=== PATIENT | male | born 1965 | race American Indian/Alaskan Native ===

== ENCOUNTER 2019-05-11 05:00 | Emergency (ER) | payer MEDICARE ==
--- NOTE | 2019-05-11 06:09 | XRay Report ---
PROCEDURE: XR HIP 2-3V RT TECHNIQUE: An AP view the pelvis was obtained along with a frog leg view of the right hip joint for total 2 views. HISTORY: Right hip pain COMPARISONS: None FINDINGS: The right hip joint space is well-maintained. The bony pelvic ring appears normal. The SI joints and left hip joint do not show any acute changes. The soft tissues are unremarkable. IMPRESSION: No significant findings.. This document is electronically signed by Low Conte MD., May 11 2019 06:07:16 AM ET
[2019-05-11] MEDS ORDERED: NACL 0.9% 0 ML IR ONE (07:37)
[2019-05-11] MEDS ORDERED: FLEXERIL PO ONE (07:40)
[2019-05-11] MEDS ORDERED: IBUPROFEN PO ONE (07:40)
[2019-05-11] MEDS ORDERED: NACL 0.9% IR ONE (07:40)
[2019-05-11] MEDS ORDERED: DELTASONE PO ONE (07:40)
--- NOTE | 2019-05-11 07:55 | Emergency Department Report ---
ED Back Pain/Injury HPI - General Chief Complaint: Fall Stated Complaint: RT SIDE BACK AND HIP PAIN Time Seen by Provider: 05/11/19 07:22 Source: patient Limitations: No Limitations - History of Present Illness Initial Comments: Patient is a 53-year-old male who comes to the ER today with right hip pain upon awakening this morning. He states that when he attempted to get out of bed and hurt him and he had a get back in the bed. It took him 3 times to get out. He states that he fell on Wednesday at work following on his right hip. He is ambulatory. He is neurovascularly intact on assessment. Patient has not taken anything to make the pain better or worse at home. The pain is achy in nature. MD Complaint: back pain -: Sudden Similar Symptoms Previously: No Place: work Quality: aching Consistency: intermittent Improves With: immobilization Context: while lifting Associated Symptoms: denies other symptoms - Related Data Previous Rx's Medication Instructions Recorded Last Taken Type Cyclobenzaprine [Flexeril] 10 mg PO TID PRN #10 tablet 05/11/19 Unknown Rx Ibuprofen [Motrin] 800 mg PO Q8HR PRN #50 tablet 05/11/19 Unknown Rx predniSONE [Deltasone] 20 mg PO DAILY #5 tablet 05/11/19 Unknown Rx Allergies Allergy/AdvReac Type Severity Reaction Status Date / Time No Known Allergies Allergy Unverified 05/11/19 05:25 ED Review of Systems ROS: Stated complaint: RT SIDE BACK AND HIP PAIN Other details as noted in HPI Comment: All other systems reviewed and negative ED Past Medical Hx - Past Medical History Medical history: COPD, hypertension Chronic nerve pain for which he takes Neurontin: Patient is not diabetic ED Back Pain Physical Exam - Exam General: Vital signs noted. No distress. Alert and acting appropriately. WDWN patient in NAD VS per RN flow sheet Alert and oriented to person, place and time. S1-S2. No S3 or S4. No systolic or diastolic murmur. No JVD. No pitting edema. Lungs clear to auscultation bilaterally anteriorly and posteriorly. Abdomen soft nontender bowel soundsx4 Moves all extremities well. no point tenderness over hip pelvis stable no lumbar tenderness femur without pain on palpation; no rotation in or out observed ambulating without difficulty Mood and affect appropriate. ED Course Vital Signs 05/11/19 05:19 Temperature 98.2 F Pulse Rate 74 Respiratory 18 Rate Blood Pressure 144/95 O2 Sat by Pulse 99 Oximetry Ed Back Pain Tests - Tests Tests: Normal X Rays ED Medical Decision Making - Radiology Data Radiology results: report reviewed, image reviewed - Medical Decision Making xray neg see exam neurovasc intact ambulatory dc home with dc plan of care and ortho follow up Vital Signs 05/11/19 05:19 Temperature 98.2 F Pulse Rate 74 Respiratory 18 Rate Blood Pressure 144/95 O2 Sat by Pulse 99 Oximetry - Differential Diagnosis ro hip v pelvic fracture; soft tissue contusion Critical care attestation.: If time is entered above; I have spent that time in minutes in the direct care of this critically ill patient, excluding procedure time. ED Disposition Clinical Impression: Hip pain, Fall from ground level Disposition: DC-01 TO HOME OR SELFCARE Is pt being admited?: No Does the pt Need Aspirin: No Condition: Stable Instructions: Hip Sprain (ED) Additional Instructions: DIET TOLERATED MEDS ORDERED TODAY IN ER FOLLOW INSTRUCTIONS ON THE BOTTLE FOLLOW UP PCP WITHIN 48 HOURS TO ENSURE YOU ARE GETTING BETTER ACTIVITY TOLERATED MOTRIN OR TYLENOL FOR PAIN OR FEVER RETURN TO THE ER FOR WORSENING SYMPTOMS NOT RELIEVED BY YOUR MEDICATIONS. FOLLOW UP ORTHO REFERRAL BELOW ALTERNATE WARM AND COLD COMPRESSES FOR PAIN Prescriptions: predniSONE [Deltasone] 20 mg PO DAILY #5 tablet Cyclobenzaprine [Flexeril] 10 mg PO TID PRN #10 tablet PRN Reason: Muscle Spasm Ibuprofen [Motrin] 800 mg PO Q8HR PRN #50 tablet PRN Reason: Pain, Mild (1-3) Referrals: PRIMARY CAREMD [Primary Care Provider] - 3-5 Days HOANG LARKIN MD [Staff Physician] - 3-5 Days Time of Disposition: 07:54
[2019-05-11 08:34] VITALS: BP 133/86
== END 2019-05-11 08:37 | disposition home or self-care (01) ==
LOC: ED 05:00
DX: M25.551 Pain in right hip (principal); W18.30XA Fall on same level, unspecified, initial encounter; Y93.89 Activity, other specified; Y92.89 Other specified places as the place of occurrence of the external cause; Y99.8 Other external cause status
CPT/HCPCS: 73502; 99283; J7512

== ENCOUNTER 2022-01-14 05:55 | Emergency (ER) | payer MEDICARE ==
[2022-01-14] MEDS ORDERED: SODIUM CHLORIDE 0.9% 1000 ML 1,000 ML IV ONE ×2 (09:32→10:53)
[2022-01-14] MEDS ORDERED: ONDANSETRON 4 MG/2 ML INJ IV ONE (09:32)
[2022-01-14] MEDS ORDERED: KETOROLAC 30 MG/1 ML INJ IV ONE (09:32)
--- NOTE | 2022-01-14 09:53 | Emergency Department Report ---
ED Abdominal Pain HPI - General Chief Complaint: Abdominal Pain Stated Complaint: ABDOMINAL PAIN PUI?: No Time Seen by Provider: 01/14/22 09:31 Source: patient Mode of arrival: Ambulatory Limitations: No Limitations - History of Present Illness Initial Comments: 56 yo comes to ER for n/v. He ate a beef rhonda last night and immediately started having n/v; Then diarrhea and abd pain no bloody stools no cp no sob no back pain no dysuria -: Sudden Severity scale (0 -10): 10 Quality: cramping Consistency: constant Improves With: nothing Worsens With: nothing Associated Symptoms: denies other symptoms, nausea, vomiting, diarrhea. denies: fever, chills, constipation, dysuria, hematemesis, hematochezia, melena, hematuria, anorexia, syncope - Related Data Previous Rx's Medication Instructions Recorded Last Taken Type Ondansetron [Zofran Odt] 4 mg PO Q8HR PRN #10 tab.rapdis 01/14/22 Unknown Rx Allergies Allergy/AdvReac Type Severity Reaction Status Date / Time No Known Allergies Allergy Unverified 05/11/19 05:25 ED Review of Systems ROS: Stated complaint: ABDOMINAL PAIN Other details as noted in HPI Comment: All other systems reviewed and negative ED Past Medical Hx - Past Medical History Previous Medical History?: Yes Hx Hypertension: Yes Hx COPD: Yes Additional medical history: Chronic nerve pain for which he takes Neurontin: Patient is not diabetic - Surgical History Past Surgical History?: Yes Additional Surgical History: Intestinal - Family History Family history: no significant - Social History Smoking Status: Current Every Day Smoker Substance Use Type: None - Medications Home Medications: Home Medications Medication Instructions Recorded Confirmed Last Taken Type Ondansetron [Zofran Odt] 4 mg PO Q8HR PRN #10 tab.rapdis 01/14/22 Unknown Rx ED Physical Exam - General Limitations: No Limitations General appearance: alert, in no apparent distress - Head Head exam: Present: atraumatic, normocephalic - Eye Eye exam: Present: normal appearance - ENT ENT exam: Present: mucous membranes moist - Neck Neck exam: Present: normal inspection - Respiratory Respiratory exam: Present: normal lung sounds bilaterally. Absent: respiratory distress - Cardiovascular Cardiovascular Exam: Present: regular rate, normal rhythm. Absent: systolic murmur, diastolic murmur, rubs, gallop - GI/Abdominal GI/Abdominal exam: Present: soft, normal bowel sounds - Rectal Rectal exam: Present: deferred - Extremities Exam Extremities exam: Present: normal inspection - Back Exam Back exam: Present: normal inspection - Neurological Exam Neurological exam: Present: alert, oriented X3 - Psychiatric Psychiatric exam: Present: normal affect, normal mood - Skin Skin exam: Present: warm, dry, intact, normal color. Absent: rash ED Course Vital Signs 01/14/22 05:56 Temperature 98.6 F Pulse Rate 90 Respiratory 18 Rate Blood Pressure 142/86 [Right] O2 Sat by Pulse 98 Oximetry - Reevaluation(s) Reevaluation #1: 01/14/22 14:05 no n/v while in ER ED Medical Decision Making - Lab Data Result diagrams: 01/14/22 09:34 01/14/22 09:34 - Radiology Data Radiology results: report reviewed, image reviewed - Medical Decision Making Labs 01/14/22 01/14/22 01/14/22 09:34 09:34 09:34 WBC 13.4 H RBC 4.93 Hgb 15.1 Hct 45.0 MCV 91 MCH 31 MCHC 34 RDW 14.4 Plt Count 151 Lymph % (Auto) 9.5 L [place] % (Auto) 5.7 Eos % (Auto) 0.0 Baso % (Auto) 0.3 Lymph # (Auto) 1.3 [place] # (Auto) 0.8 Eos # (Auto) 0.0 Baso # (Auto) 0.0 Seg Neutrophils % 84.5 H Seg Neutrophils # 11.3 H Sodium 138 Potassium 4.7 Chloride 98.3 Carbon Dioxide 26 Anion Gap 18 BUN 12 Creatinine 0.7 L Estimated GFR > 60 BUN/Creatinine Ratio 17 Glucose 146 H Calcium 9.8 Total Bilirubin 0.60 Direct Bilirubin < 0.2 Indirect Bilirubin 0.4 AST 19 ALT 14 Alkaline Phosphatase 123 Total Protein 8.1 Albumin 4.9 Albumin/Globulin Ratio 1.5 Lipase 13 Urine Color Urine Turbidity Urine pH Ur Specific [place] Urine Protein Urine Glucose (UA) Urine Ketones Urine Blood Urine Nitrite Urine Bilirubin Urine Urobilinogen Ur Leukocyte Esterase Urine WBC (Auto) Urine RBC (Auto) U Epithel Cells (Auto) Urine Mucus 01/14/22 Unknown WBC RBC Hgb Hct MCV MCH MCHC RDW Plt Count Lymph % (Auto) [place] % (Auto) Eos % (Auto) Baso % (Auto) Lymph # (Auto) [place] # (Auto) Eos # (Auto) Baso # (Auto) Seg Neutrophils % Seg Neutrophils # Sodium Potassium Chloride Carbon Dioxide Anion Gap BUN Creatinine Estimated GFR BUN/Creatinine Ratio Glucose Calcium Total Bilirubin Direct Bilirubin Indirect Bilirubin AST ALT Alkaline Phosphatase Total Protein Albumin Albumin/Globulin Ratio Lipase Urine Color Yellow Urine Turbidity Clear Urine pH 9.0 H Ur Specific [place] 1.015 Urine Protein 30 mg/dl Urine Glucose (UA) Neg Urine Ketones 20 Urine Blood Neg Urine Nitrite Neg Urine Bilirubin Neg Urine Urobilinogen < 2.0 Ur Leukocyte Esterase Neg Urine WBC (Auto) 1.0 Urine RBC (Auto) 2.0 U Epithel Cells (Auto) 1.0 Urine Mucus Few Vital Signs 01/14/22 05:56 Temperature 98.6 F Pulse Rate 90 Respiratory 18 Rate Blood Pressure 142/86 [Right] O2 Sat by Pulse 98 Oximetry labs noted ua noted vs stable fluids/zofran/pain meds in ER ambulatory and taking po on reexam dc home with dc plan of care including diet/activity/ meds and follow up. He verbalizes understanding of plan of care. - Differential Diagnosis gastroenteritis Critical care attestation.: If time is entered above; I have spent that time in minutes in the direct care of this critically ill patient, excluding procedure time. ED Disposition Clinical Impression: Gastroenteritis Abdominal pain Qualifiers: Abdominal location: generalized Qualified Code(s): R10.84 - Generalized abdominal pain Disposition: 01 HOME / SELF CARE / HOMELESS Is pt being admited?: No Does the pt Need Aspirin: No Condition: Stable Instructions: Viral Gastroenteritis, Adult Additional Instructions: follow up with pcp referral below motrin or tylenol for pain med as ordered today Prescriptions: Ondansetron [Zofran Odt] 4 mg PO Q8HR PRN #10 tab.rapdis PRN Reason: Vomiting Referrals: MARCELA CARLIN MD [Staff Physician] - 3-5 Days Time of Disposition: 13:43
[2022-01-14 10:06] LABS: Basophils % (Auto) 0.3 % (0.0-1.8); Hemoglobin 15.1 gm/dl (11.8-15.2); Lymphocytes # (Auto) 1.3 K/mm3 (1.2-5.4); Lymphocytes % (Auto) 9.5 % (13.4-35.0); Mean Corpuscular HGB Conc 34 % (32-34); Mean Corpuscular Volume 91 fl (84-94); Monocytes # (Auto) 0.8 K/mm3 (0.0-0.8); Monocytes % (Auto) 5.7 % (0.0-7.3); Platelet Count 151 K/mm3 (140-440); Red Blood Count 4.93 M/mm3 (3.65-5.03); Red Cell Distribution Width 14.4 % (13.2-15.2)
[2022-01-14 10:27] LABS: Alanine Aminotransferase 14 units/L (7-56); Albumin 4.9 g/dL (3.9-5)
[2022-01-14 10:30] LABS: Bilirubin,Direct < 0.2 mg/dL (0-0.2)
[2022-01-14 12:40] LABS: Bilirubin,Urine NEG (Negative); Blood,Urine NEG (Negative); Color,Urine Yellow (Yellow); Mucus,Urine FEW /HPF; Urobilinogen,Urine < 2.0 mg/dL (<2.0)
[2022-01-14 12:40] LABS: BUN/Creatinine Ratio 17; Blood Urea Nitrogen 12 mg/dL (9-20); Calcium 9.8 mg/dL (8.4-10.2); Hemolysis Index 13
[2022-01-14] MEDS ORDERED: MORPHINE 4 MG/1 ML INJ IV ONE (12:53)
[2022-01-14 14:05] VITALS: BP 134/80
== END 2022-01-14 14:05 | disposition home or self-care (01) ==
LOC: ED 05:55
DX: K52.9 Noninfective gastroenteritis and colitis, unspecified (principal); R10.9 Unspecified abdominal pain; I10 Essential (primary) hypertension; J44.9 Chronic obstructive pulmonary disease, unspecified; Z98.890 Other specified postprocedural states; F17.200 Nicotine dependence, unspecified, uncomplicated
CPT/HCPCS: 36415; 80048; 80076; 81001; 83690; 85025; 96361; 96374; 96375; 99283; J1885; J2270; J2405; J7030; Q0162